=== PATIENT | female | born 1990 | race Caucasian/White ===

== ENCOUNTER 2017-04-08 15:52 | Emergency (ER) | payer OTHER ==
[~2017-04-08] VITALS: Ht 165.1 cm; Wt 63.6 kg
[~2017-04-08 15:52] MED LIST: HYDROcodone-APAP 5-325 PO; IBUP-1827 PO; PREN1TAB69 PO
[2017-04-08 16:13] VITALS: BP 167/79; PULSE 92; RESP 12; O2SAT 100
--- NOTE | 2017-04-08 17:45 | ED.REPORT ---
HPI-Extremity Problem Lower Date of Service Apr 08, 2017 ED Provider: Doc,Ed MD History of Present Illness: 27-year-old female here for left leg pain. Onset in the last week. Pain is in her posterior left hamstring and left calf. She recently had left hip arthroscopic surgery to fix a torn labrum and she had some bone shaved at this time. Pain is new since this procedure. She has been diagnosed with left-sided sciatica, in the past though. She continues to have low back pain and actually worsening hip and leg pain since surgery. The pain started when she ran out of her pain meds. She was taking oxycodone 2 pills multiple times a day. She ran out of meds about 6 days ago while she was camping. The pain really has gotten worse since. She has no new activities. Nursing Notes Stated Complaint: POST-OP LEG PAIN Chief Complaint: Extremity Trauma Nursing Notes Reviewed: Yes Allergies: Coded Allergies: No Known Allergies (Verified , 10/11/15) Scheduled Vit/Fe Fumarate/Fa-Expunged Drug, Do (-Expunged Drug, Do Not Renew!) 1 Each Tablet 1 EACH PO DAILY Scheduled PRN ([HYDROcodone-APAP 5-325]) 1 TABLET TABLET 1-2 TABLET PO Q4H PRN PRN For Pain Ibuprofen (Ibuprofen) 600 Mg Tablet 600 MG PO Q6H PRN PRN For Mild Pain General Time Seen by MD: 17:45 Chief Complaint Leg injury left Hx Obtained From: Patient Arrived By: Walk-in Onset Occurred: 1 week ago (4 weeks) Symptom Duration: Waxes and wanes Location: : Leg left Quality: Aching Severity: Current: Mild Severity: Maximum: Severe Pertinent Negative: Pt denies other symptoms Exacerbated by: Range of motion, Movement Relieved by: Rest Immunizations: Unknown Recent Healthcare: Recent doctor visit Similar Sx Previous: Yes Risk-Extremity Prob Lower Risk Notes: no control pills surgery 5 weeks ago Past Medical History Past Medical History Notes: hip arthroscopic surgery early february 2017 Smoking History Current Every Day Smoker Social History Alcohol Use: Denies alcohol use Drug Use: Denies drug use Ambulatory Status Independent Review of Systems Musculoskeletal: Reports: Extremity pain (left leg) Physical Exam Initial Vital Signs Vital Signs (First) Date Time Temp Pulse Resp B/P Pulse Ox O2 Delivery O2 Flow Rate FiO2 04/08/17 16:13 36.7 92 12 167/79 100 Room Air Initial VS: Reviewed, Vital signs normal General/Constitutional: Well-developed, Well-nourished Head / Eyes: Atraumatic, Normocephalic, PERRL Respiratory: Breath sounds normal, Clear to auscultation, No respiratory distress Cardiovascular: Regular rate & rhythm, Heart sounds normal, Intact distal pulses Skin: Warm, Dry, No cyanosis Neurologic: Alert, Oriented, Nonfocal Psychiatric: Mood/affect normal, Behavior normal, Normal thought content Lower Extremity / Pelvis / MS: Atraumatic, Inspection NL, Full range of motion , No swelling, No erythema, No deformity, Neurologic intact, Vascular intact, No edema Tender to palpate left hamstring left calf and left posterior knee. Straight leg test positive on the left side at 10 for pain on the left side. Straight leg test negative on the right side. No obvious erythema, signs of infection or swelling. Patient has full range of motion of her low back Back: Atraumatic, Inspection NL, Full range of motion, No midline vertebral tend Flank / Spine / Paraspinal: Positive: Lumbar paraspinal tend... (Mid) Additional Notes: Tenderness to left low back and left gluteus Interpretation & Diagnostics Interpretation & Diagnostics: PROCEDURE: US VEINOUS LEG DUPLEX UNILATERAL, RIGHT INDICATIONS: recent surgery, leg pain TECHNIQUE: Real-time imaging, as well as color and pulse Doppler interrogation, were performed of the lower extremity deep veins from the inguinal ligament to the popliteal fossa. COMPARISON: [facility], , US OB FU GROWTH+BPP+UMB DOP, 08/23/2015, 10:23. FINDINGS: The deep veins are normally compressible, and free of intraluminal thrombus. Color and pulse Doppler demonstrate normal phasic intraluminal flow. There is normal augmentation response to distal compression maneuver. IMPRESSION: No right lower extremity deep venous thrombus. Discharge & Departure Shift Change Sign-Out Imaging Studies: Imaging discussed Impression: Primary Impression: Sciatica of left side Disposition: Home Discharge Condition All VS Reviewed: Yes Condition: Stable Patient Instructions: Sciatica (ED) Additional Instructions: Taking naproxen twice a day as scheduled. Use muscle relaxers as needed for severe muscle spasms or pain. Follow up with your medical provider as scheduled. Consider doing physical therapy as soon as he can get in. Return for lower extremity weakness, worsening pain or any other concerns. Referrals: Izabela Ceja (PCP) EDSupervising Provider for APC: Jalil Gabriel MD, Linnea K ARNP Apr 08, 2017 17:45
--- NOTE | 2017-04-08 18:54 | DRSVH ---
PROCEDURE: US VEINOUS LEG DUPLEX UNILATERAL, RIGHT INDICATIONS: recent surgery, leg pain TECHNIQUE: Real-time imaging, as well as color and pulse Doppler interrogation, were performed of the lower extr emity deep veins from the inguinal ligament to the popliteal fossa. COMPARISON: [facility], [place], US OB FU GROWTH+BPP+UMB DOP, 08/23/2015, 10:23. FINDINGS: The deep veins are normally compressible, and free of intraluminal thrombus. Color and pu lse Doppler demonstrate normal phasic intraluminal flow. There is normal augmentation response to di stal compression maneuver. IMPRESSION: No right lower extremity deep venous thrombus. Dictated by: Abdulaziz Bashir M.D. on 04/08/2017 at 18:52 Approved by: Abdulaziz Bashir M.D. on 04/08/2017 at 18:52
== END 2017-04-08 19:46 | disposition home or self-care (01) ==
LOC: SED 15:52
DX: M54.32 Sciatica, left side (principal); F17.200 Nicotine dependence, unspecified, uncomplicated; Z98.890 Other specified postprocedural states